=== PATIENT | male | born 1985 | race African-American/Black ===

== ENCOUNTER 2016-10-06 01:20 | Inpatient (IN) | payer OTHER ==
[~2016-10-06] VITALS: Ht 175.3 cm; Wt 86.7 kg
[~2016-10-06 01:20] MED LIST: CARB200T6 PO; GABA-531 PO; PHENY100 PO
[2016-10-06] MEDS ORDERED: LIDOCAINE HCL BUFFERED 1% W/EPI 1:100,000 20 ML VIAL INJ ONE (01:30)
[2016-10-06] MEDS ORDERED: SODIUM CHLORIDE 0.9% 250 ML IRRIG SOLUTION BOTTLE IRRIG ONE (01:30)
[2016-10-06] MEDS ORDERED: PERTUSS(ACELL),DIPH,TET VAC/PF 0.5 ML VIAL IM ONE (01:30)
[2016-10-06] MEDS ORDERED: LORazepam 2 MG TABLET PO ONE (01:30)
[2016-10-06] MEDS ORDERED: LORazepam 2 MG/ML VIAL ONE (01:41)
[2016-10-06 02:54] LABS: BASOPHILS # (AUTO) 0.01 K/uL (0.00-0.20); BASOPHILS % (AUTO) 0.1 % (0.0-2.0); EOSINOPHILS # (AUTO) 0.03 K/uL (0.00-0.70); EOSINOPHILS % (AUTO) 0.35 % (1.0-6.0); HEMATOCRIT 45.7 % (41-53); HEMOGLOBIN 14.7 g/dL (13.5-17.5); LYMPHOCYTES # (AUTO) 0.6 K/uL (1.0-4.8); LYMPHOCYTES % (AUTO) 7.2 % (22.0-44.0); MEAN CORPUSCULAR HEMOGLOBIN 26.6 pg (26.0-34.0); MEAN CORPUSCULAR HGB CONC 32.2 G/dL (31.0-37.0); MEAN CORPUSCULAR VOLUME 82 fL (80-100); MONOCYTES # (AUTO) 0.5 K/uL (0.1-1.0); MONOCYTES % (AUTO) 6.1 % (2.0-9.0); NEUTROPHILS # (AUTO) 7.1 K/uL (1.8-7.7); PLATELET COUNT (AUTO) 193 K/uL (150-450); RED BLOOD CELL COUNT(AUTO) 5.54 MIL/uL (4.50-5.90); RED CELL DISTRIBUTION WIDTH 14.6 % (11.5-14.5); WHITE BLOOD COUNT (AUTO) 8.2 K/uL (4.5-11.0)
[2016-10-06 02:58] LABS: NEUTROPHILS % (AUTO) 86.2 % (40.0-70.0)
[2016-10-06 03:04] LABS: ANION GAP 9 mmol/L (8-16); CARBON DIOXIDE 23 mmol/L (22-29); CHLORIDE 102 mmol/L (98-107); CREATININE 1.54 mg/dL (0.60-1.30); GLOMERULAR FILTR. RATE CALC > 60 mL/min (>60); POTASSIUM 4.3 mmol/L (3.5-5.1); SODIUM SERUM 134 mmol/L (136-145); UREA NITROGEN, BLOOD 11 mg/dL (7-18)
[2016-10-06 03:10] LABS: ALANINE AMINOTRANSFERASE 55 U/L (12-78); ALBUMIN 3.8 g/dL (3.4-5.0); ASPARTATE AMINOTRANSFERASE 36 U/L (15-37); BILIRUBIN,TOTAL 0.2 mg/dL (0.1-1.0); TOTAL PROTEIN, SERUM 7.7 g/dL (6.4-8.2)
[2016-10-06] MEDS ORDERED: LORazepam 2 MG/ML VIAL IVP ONE (03:15)
[2016-10-06 03:23] LABS: VALPROIC ACID < 3 mcg/mL (50-100)
[2016-10-06] MEDS ORDERED: PHENYTOIN SODIUM 1,000 MG in SODIUM CHLORIDE 0.9% 150 ML IV ONE (04:00)
[2016-10-06] MEDS ORDERED: VALPROATE SODIUM 1,000 MG in DEXTROSE 5%-WATER 100 ML IV ONE (04:00)
[2016-10-06] MEDS ORDERED: ONDANSETRON HCL 4 MG/2 ML VIAL IVP PRN ×2 (07:45→09:00)
[2016-10-06] MEDS ORDERED: ACETAMINOPHEN 325 MG TABLET PO PRN ×2 (07:45→09:00)
[2016-10-06] MEDS ORDERED: MAGNESIUM HYDROXIDE SUSPENSION 30 ML UDCUP PO PRN (09:00)
[2016-10-06] MEDS ORDERED: OxyCODONE HCL/ACETAMINOPHEN 5-325 MG TABLET PO PRN (09:00)
[2016-10-06] MEDS ORDERED: LORazepam 2 MG/ML VIAL IVP PRN (09:00)
[2016-10-06] MEDS: PANTOPRAZOLE SODIUM 40 MG DR TABLET PO SCH (09:19)
[2016-10-06] MEDS: DOCUSATE SODIUM 100 MG CAPSULE PO SCH ×2 (09:19→20:29)
[2016-10-06 09:55] VITALS: BP 119/57
[2016-10-06 11:34] VITALS: BP 110/62
[2016-10-06 15:23] VITALS: BP 97/50
[2016-10-06 19:49] VITALS: BP 104/58
[2016-10-07 00:31] VITALS: BP 119/54
[2016-10-07 04:02] VITALS: BP 114/53
[2016-10-07 07:35] VITALS: BP 120/61
[2016-10-07] MEDS: DOCUSATE SODIUM 100 MG CAPSULE PO SCH (08:26)
[2016-10-07] MEDS: PANTOPRAZOLE SODIUM 40 MG DR TABLET PO SCH (08:26)
[2016-10-07 11:37] VITALS: BP 117/57
== END 2016-10-07 14:45 | disposition home or self-care (01) | DRG 53 ==
LOC: EMS 01:22 → 5N 08:02
PROVIDERS: ADMIT Internal Medicine; ATTEND Internal Medicine
PROC: 0HQ1XZZ Repair Face Skin, External Approach (ICD-10-PCS; principal; 2016-10-06)
DX: G40.909 Epilepsy, unspecified, not intractable, without status epilepticus (principal); S01.111A Laceration without foreign body of right eyelid and periocular area, initial encounter; F17.210 Nicotine dependence, cigarettes, uncomplicated; S01.512A Laceration without foreign body of oral cavity, initial encounter; F12.90 Cannabis use, unspecified, uncomplicated; F14.90 Cocaine use, unspecified, uncomplicated; S80.212A Abrasion, left knee, initial encounter; F19.10 Other psychoactive substance abuse, uncomplicated; Z91.14 Patient's other noncompliance with medication regimen; Z79.899 Other long term (current) drug therapy; Z82.5 Family history of asthma and other chronic lower respiratory diseases; Z82.49 Family history of ischemic heart disease and other diseases of the circulatory system; Z82.0 Family history of epilepsy and other diseases of the nervous system; X58.XXXA Exposure to other specified factors, initial encounter; Y93.89 Activity, other specified; Y92.89 Other specified places as the place of occurrence of the external cause; Y99.8 Other external cause status
CPT/HCPCS: 80307; 90715; G0480; G0482; J1165; J2060; J3490; J7050; J7060

== ENCOUNTER 2016-11-23 16:42 | Emergency (ER) | payer OTHER ==
[~2016-11-23] VITALS: Ht 175.3 cm; Wt 95.5 kg
[~2016-11-23 16:42] MED LIST changes: -GABA-531 PO
[2016-11-23] MEDS ORDERED: LEVE250T55 PO (16:47)
[2016-11-23 18:28] VITALS: BP 137/82
== END 2016-11-23 19:03 | disposition home or self-care (01) ==
LOC: EMS 16:45
DX: Z76.0 Encounter for issue of repeat prescription (principal); F17.210 Nicotine dependence, cigarettes, uncomplicated; F12.90 Cannabis use, unspecified, uncomplicated; F14.90 Cocaine use, unspecified, uncomplicated
CPT/HCPCS: 36415; 80156; 80185; 99284; G0482

== ENCOUNTER 2017-03-26 02:24 | Emergency (ER) | payer OTHER ==
[~2017-03-26] VITALS: Ht 182.9 cm; Wt 86.4 kg
[~2017-03-26 02:24] MED LIST changes: +LEVE250T55 PO
[2017-03-26] MEDS ORDERED: SODIUM CHLORIDE 0.9% 1,000 ML IV ONE (02:45)
[2017-03-26 02:51] LABS: BASOPHILS # (AUTO) 0.03 K/uL (0.00-0.20); BASOPHILS % (AUTO) 0.7 % (0.0-2.0); HEMATOCRIT 41.3 % (41-53); HEMOGLOBIN 13.3 g/dL (13.5-17.5); LYMPHOCYTES # (AUTO) 1.3 K/uL (1.0-4.8); LYMPHOCYTES % (AUTO) 25.8 % (22.0-44.0); MEAN CORPUSCULAR HEMOGLOBIN 26.6 pg (26.0-34.0); MEAN CORPUSCULAR HGB CONC 32.3 G/dL (31.0-37.0); MEAN CORPUSCULAR VOLUME 82 fL (80-100); MONOCYTES # (AUTO) 0.4 K/uL (0.1-1.0); MONOCYTES % (AUTO) 8.7 % (2.0-9.0); NEUTROPHILS # (AUTO) 3.1 K/uL (1.8-7.7); NEUTROPHILS % (AUTO) 62.7 % (40.0-70.0); PLATELET COUNT (AUTO) 150 K/uL (150-450); RED BLOOD CELL COUNT(AUTO) 5.01 MIL/uL (4.50-5.90); RED CELL DISTRIBUTION WIDTH 15.2 % (11.5-14.5)
[2017-03-26 02:59] LABS: ANION GAP 11 mmol/L (8-16); CARBON DIOXIDE 25 mmol/L (22-29); CHLORIDE 105 mmol/L (98-107); CREATININE 1.31 mg/dL (0.60-1.30); GLOMERULAR FILTR. RATE CALC > 60 mL/min (>60); POTASSIUM 3.7 mmol/L (3.5-5.1); SODIUM SERUM 141 mmol/L (136-145); UREA NITROGEN, BLOOD 12 mg/dL (7-18)
[2017-03-26 03:04] LABS: ALANINE AMINOTRANSFERASE 27 U/L (12-78); ALBUMIN 3.7 g/dL (3.4-5.0); ASPARTATE AMINOTRANSFERASE 21 U/L (15-37); BILIRUBIN,TOTAL 0.3 mg/dL (0.1-1.0); TOTAL PROTEIN, SERUM 6.7 g/dL (6.4-8.2)
[2017-03-26] MEDS ORDERED: LevETIRAcetam 250 MG TABLET PO ONE (03:45)
[2017-03-26 04:10] VITALS: BP 136/88
== END 2017-03-26 04:17 | disposition home or self-care (01) ==
LOC: EMS 02:25
DX: G40.909 Epilepsy, unspecified, not intractable, without status epilepticus (principal); F12.90 Cannabis use, unspecified, uncomplicated; F14.90 Cocaine use, unspecified, uncomplicated; F17.210 Nicotine dependence, cigarettes, uncomplicated
CPT/HCPCS: 36415; 80053; 80185; 80307; 82948; 85025; 93005; 96360; 96361; 99285; G0480; J7030

== ENCOUNTER 2017-04-21 21:43 | Emergency (ER) | payer OTHER ==
[~2017-04-21] VITALS: Ht 175.3 cm; Wt 90.5 kg
[2017-04-21] MEDS ORDERED: DIVA125T PO (21:51)
[2017-04-22 01:23] LABS: BASOPHILS % (AUTO) 0.8 % (0.0-2.0); EOSINOPHILS % (AUTO) 2.9 % (1.0-6.0); HEMOGLOBIN 14.3 g/dL (13.5-17.5); LYMPHOCYTES # (AUTO) 2.1 K/uL (1.0-4.8); LYMPHOCYTES % (AUTO) 34.5 % (22.0-44.0); MEAN CORPUSCULAR HEMOGLOBIN 26.8 pg (26.0-34.0); MEAN CORPUSCULAR HGB CONC 32.5 G/dL (31.0-37.0); MEAN CORPUSCULAR VOLUME 82 fL (80-100); MONOCYTES # (AUTO) 0.4 K/uL (0.1-1.0); MONOCYTES % (AUTO) 7.3 % (2.0-9.0); NEUTROPHILS # (AUTO) 3.3 K/uL (1.8-7.7); NEUTROPHILS % (AUTO) 54.5 % (40.0-70.0); PLATELET COUNT (AUTO) 171 K/uL (150-450); RED BLOOD CELL COUNT(AUTO) 5.34 MIL/uL (4.50-5.90); RED CELL DISTRIBUTION WIDTH 14.3 % (11.5-14.5)
[2017-04-22 01:36] LABS: ALANINE AMINOTRANSFERASE 36 U/L (12-78); ALBUMIN 4.1 g/dL (3.4-5.0); ANION GAP 9 mmol/L (8-16); ASPARTATE AMINOTRANSFERASE 33 U/L (15-37); BILIRUBIN,TOTAL 0.3 mg/dL (0.1-1.0); CARBON DIOXIDE 26 mmol/L (22-29); CHLORIDE 102 mmol/L (98-107); CREATININE 1.34 mg/dL (0.60-1.30); GLOMERULAR FILTR. RATE CALC > 60 mL/min (>60); SODIUM SERUM 137 mmol/L (136-145); TOTAL PROTEIN, SERUM 8.3 g/dL (6.4-8.2); UREA NITROGEN, BLOOD 13 mg/dL (7-18)
[2017-04-22 01:38] LABS: POTASSIUM 5.4 mmol/L (3.5-5.1)
[2017-04-22 02:51] VITALS: BP 128/88
[2017-04-22] MEDS ORDERED: PHENYTOIN SODIUM 100 MG ER CAPSULE PO ONE (03:00)
[2017-04-22] MEDS ORDERED: DIVALPROEX SODIUM 125 MG DR TABLET PO ONE (03:00)
[2017-04-22] MEDS ORDERED: LevETIRAcetam 250 MG TABLET PO ONE (03:00)
[2017-04-22] MEDS ORDERED: CarBAMazepine 200 MG TABLET PO ONE (03:00)
[2017-04-22] MEDS ORDERED: IBUPROFEN 600 MG TABLET PO ONE (03:15)
[2017-04-22 03:18] LABS: GLUCOSE,POINT OF CARE 106 MG/DL (70-110)
== END 2017-04-22 03:16 | disposition home or self-care (01) ==
LOC: EMS 21:44
DX: G40.909 Epilepsy, unspecified, not intractable, without status epilepticus (principal); M79.641 Pain in right hand; F12.90 Cannabis use, unspecified, uncomplicated; F14.90 Cocaine use, unspecified, uncomplicated; F17.210 Nicotine dependence, cigarettes, uncomplicated
CPT/HCPCS: 70450; 82948; 82962; 99285

== ENCOUNTER 2018-01-12 08:17 | Emergency (ER) | payer OTHER ==
[~2018-01-12] VITALS: Ht 175.3 cm; Wt 90.9 kg
[~2018-01-12 08:17] MED LIST changes: +DIVA125T32 PO; +DIVA250T45 PO; +PHEN100C23 PO
[2018-01-12] MEDS ORDERED: KETOROLAC TROMETHAMINE 30 MG/ML VIAL IVP ONE (08:45)
[2018-01-12] MEDS ORDERED: LevETIRAcetam 1,000 MG in DEXTROSE 5%-WATER 100 ML IV ONE (08:45)
[2018-01-12 09:44] LABS: CARBAMAZEPINE (TEGRETOL) < 0.5 mcg/mL (4.0-12.0); PHENYTOIN (DILANTIN) 0.6 mcg/mL (10.0-20.0); VALPROIC ACID 10 mcg/mL (50-100)
[2018-01-12] MEDS ORDERED: PHENYTOIN SODIUM 1,000 MG in SODIUM CHLORIDE 0.9% 150 ML IV ONE (10:00)
[2018-01-12] MEDS ORDERED: DIVALPROEX SODIUM 125 MG DR TABLET PO ONE (10:00)
[2018-01-12] MEDS ORDERED: CarBAMazepine 200 MG TABLET PO ONE (10:00)
[2018-01-12 11:36] VITALS: BP 108/77
== END 2018-01-12 11:37 | disposition home or self-care (01) ==
LOC: EMS 08:19
DX: G40.909 Epilepsy, unspecified, not intractable, without status epilepticus (principal); R51 Headache
CPT/HCPCS: 36415; 80156; 80164; 80185; 96365; 96366; 96367; 96375; 99285; J0712; J1165; J1885; J7050; J7060

== ENCOUNTER 2018-04-20 10:58 | Emergency (ER) | payer OTHER ==
[~2018-04-20] VITALS: Ht 175.3 cm; Wt 90.9 kg
[~2018-04-20 10:58] MED LIST changes: -DIVA250T45 PO; -PHENY100 PO
[2018-04-20 11:04] VITALS: BP 133/79
== END 2018-04-20 14:05 | disposition left against medical advice (07) ==
LOC: EMS 10:59
DX: R56.9 Unspecified convulsions (principal); Z53.21 Procedure and treatment not carried out due to patient leaving prior to being seen by health care provider

== ENCOUNTER 2018-07-13 11:46 | Emergency (ER) | payer OTHER ==
[~2018-07-13] VITALS: Ht 175.3 cm; Wt 86.4 kg
[2018-07-13] MEDS ORDERED: DIVALPROEX SODIUM 125 MG DR TABLET PO ONE (12:45)
[2018-07-13] MEDS ORDERED: LevETIRAcetam 250 MG TABLET PO ONE (12:45)
[2018-07-13 13:01] LABS: PHENYTOIN (DILANTIN) 5.8 mcg/mL (10.0-20.0)
[2018-07-13 13:02] LABS: VALPROIC ACID < 3 mcg/mL (50-100)
[2018-07-13] MEDS ORDERED: PHENYTOIN SODIUM 100 MG ER CAPSULE PO ONE (13:45)
[2018-07-13 14:01] VITALS: BP 114/80
== END 2018-07-13 14:01 | disposition home or self-care (01) ==
LOC: EMS 11:48
DX: G40.909 Epilepsy, unspecified, not intractable, without status epilepticus (principal)

== ENCOUNTER 2018-10-12 01:12 | Emergency (ER) | payer OTHER ==
[~2018-10-12] VITALS: Ht 175.3 cm; Wt 90.9 kg
[2018-10-12 03:02] LABS: PHENYTOIN (DILANTIN) < 0.5 mcg/mL (10.0-20.0); VALPROIC ACID < 3 mcg/mL (50-100)
[2018-10-12] MEDS ORDERED: LORazepam 2 MG/ML VIAL IVP ONE (04:15)
[2018-10-12] MEDS ORDERED: PHENYTOIN SODIUM 100 MG ER CAPSULE PO ONE (04:15)
[2018-10-12] MEDS ORDERED: LevETIRAcetam 1,000 MG in DEXTROSE 5%-WATER 100 ML IV ONE (04:15)
[2018-10-12] MEDS ORDERED: DIVALPROEX SODIUM 500 MG ER TABLET PO ONE (04:15)
[2018-10-12 05:15] VITALS: BP 119/76
[2018-10-12 05:17] LABS: BASOPHILS % (AUTO) 0.6 % (0.0-2.0); EOSINOPHILS % (AUTO) 8.4 % (1.0-6.0); HEMATOCRIT 42.8 % (41-53); HEMOGLOBIN 13.7 g/dL (13.5-17.5); LYMPHOCYTES # (AUTO) 1.8 K/uL (1.0-4.8); LYMPHOCYTES % (AUTO) 34.3 % (22.0-44.0); MEAN CORPUSCULAR HEMOGLOBIN 26.6 pg (26.0-34.0); MEAN CORPUSCULAR HGB CONC 31.9 G/dL (31.0-37.0); MEAN CORPUSCULAR VOLUME 83 fL (80-100); MONOCYTES # (AUTO) 0.6 K/uL (0.1-1.0); MONOCYTES % (AUTO) 11.6 % (2.0-9.0); NEUTROPHILS # (AUTO) 2.4 K/uL (1.8-7.7); NEUTROPHILS % (AUTO) 45.1 % (40.0-70.0); PLATELET COUNT (AUTO) 176 K/uL (150-450); RED BLOOD CELL COUNT(AUTO) 5.15 MIL/uL (4.50-5.90); RED CELL DISTRIBUTION WIDTH 13.7 % (11.5-14.5)
[2018-10-12 05:26] LABS: ANION GAP 8 mmol/L (8-16); CARBON DIOXIDE 24 mmol/L (22-29); CHLORIDE 106 mmol/L (98-107); CREATININE 1.43 mg/dL (0.60-1.30); GLOMERULAR FILTR. RATE CALC > 60 mL/min (>60); GLUCOSE,RANDOM 90 mg/dL (70-110); POTASSIUM 4.2 mmol/L (3.5-5.1); SODIUM SERUM 138 mmol/L (136-145); UREA NITROGEN, BLOOD 15 mg/dL (7-18)
[2018-10-12 05:31] LABS: ALANINE AMINOTRANSFERASE 24 U/L (12-78); ALBUMIN 3.5 g/dL (3.4-5.0); ALKALINE PHOSPHATASE 74 U/L (46-116); ASPARTATE AMINOTRANSFERASE 15 U/L (15-37); BILIRUBIN,TOTAL 0.2 mg/dL (0.1-1.0); TOTAL PROTEIN, SERUM 6.7 g/dL (6.4-8.2)
== END 2018-10-12 06:11 | disposition home or self-care (01) ==
LOC: EMS 01:15
DX: G40.89 Other seizures (principal); F17.210 Nicotine dependence, cigarettes, uncomplicated; Z79.899 Other long term (current) drug therapy
CPT/HCPCS: 36415; 80053; 80164; 80185; 85025; 96365; 96375; 99283; 99406; G0482; J0712; J2060; J7060

== ENCOUNTER 2018-11-29 09:57 | Emergency (ER) | payer OTHER ==
[~2018-11-29] VITALS: Ht 175.3 cm; Wt 95.5 kg
[~2018-11-29 09:57] MED LIST changes: -CARB200T6 PO
[2018-11-29] MEDS ORDERED: PHENYTOIN SODIUM 100 MG ER CAPSULE PO ONE (10:30)
[2018-11-29] MEDS ORDERED: LevETIRAcetam 250 MG TABLET PO ONE (10:30)
[2018-11-29] MEDS ORDERED: IBUPROFEN 600 MG TABLET PO ONE (10:30)
[2018-11-29] MEDS ORDERED: CarBAMazepine 200 MG TABLET PO ONE (10:30)
[2018-11-29 10:59] LABS: PHENYTOIN (DILANTIN) < 0.5 mcg/mL (10.0-20.0)
[2018-11-29 12:39] VITALS: BP 109/79
== END 2018-11-29 12:48 | disposition home or self-care (01) ==
LOC: EMS 09:58
DX: G40.509 Epileptic seizures related to external causes, not intractable, without status epilepticus (principal); F17.210 Nicotine dependence, cigarettes, uncomplicated

== ENCOUNTER 2018-12-06 22:42 | Inpatient (IN) | payer OTHER ==
[~2018-12-06] VITALS: Ht 175.3 cm; Wt 90.4 kg
[2018-12-06] MEDS ORDERED: LORazepam 2 MG/ML VIAL ONE (23:19)
[2018-12-06 23:26] LABS: PHENYTOIN (DILANTIN) 1.2 mcg/mL (10.0-20.0)
[2018-12-06 23:30] LABS: GLUCOSE,POINT OF CARE 130 MG/DL (70-110)
[2018-12-06] MEDS ORDERED: LORazepam 2 MG/ML VIAL IVP ONE (23:30)
[2018-12-06] MEDS ORDERED: LevETIRAcetam 1,000 MG in DEXTROSE 5%-WATER 100 ML IV ONE (23:30)
[2018-12-06 23:38] LABS: BASOPHILS % (AUTO) 0.4 % (0.0-2.0); EOSINOPHILS % (AUTO) 0.5 % (1.0-6.0); HEMATOCRIT 44.7 % (41-53); HEMOGLOBIN 14.2 g/dL (13.5-17.5); MEAN CORPUSCULAR HEMOGLOBIN 26.4 pg (26.0-34.0); MEAN CORPUSCULAR HGB CONC 31.8 G/dL (31.0-37.0); MEAN CORPUSCULAR VOLUME 83 fL (80-100); MONOCYTES % (AUTO) 8.8 % (2.0-9.0); NEUTROPHILS # (AUTO) 7.9 K/uL (1.8-7.7); NEUTROPHILS % (AUTO) 72.3 % (40.0-70.0); PLATELET COUNT (AUTO) 228 K/uL (150-450); RED BLOOD CELL COUNT(AUTO) 5.38 MIL/uL (4.50-5.90); RED CELL DISTRIBUTION WIDTH 13.7 % (11.5-14.5)
[2018-12-06 23:54] LABS: ANION GAP 11 mmol/L (8-16); CALCIUM, TOTAL 9.5 mg/dL (8.8-10.5); CARBON DIOXIDE 22 mmol/L (22-29); CHLORIDE 106 mmol/L (98-107); CREATININE 1.41 mg/dL (0.60-1.30); GLOMERULAR FILTR. RATE CALC > 60 mL/min (>60); GLUCOSE,RANDOM 133 mg/dL (70-110); POTASSIUM 3.1 mmol/L (3.5-5.1); SODIUM SERUM 139 mmol/L (136-145); UREA NITROGEN, BLOOD 7 mg/dL (7-18)
[2018-12-07] LABS: ALANINE AMINOTRANSFERASE 24 U/L (12-78); ALBUMIN 3.9 g/dL (3.4-5.0); ALKALINE PHOSPHATASE 71 U/L (46-116); ASPARTATE AMINOTRANSFERASE 15 U/L (15-37); BILIRUBIN,TOTAL 0.3 mg/dL (0.1-1.0); TOTAL PROTEIN, SERUM 7.2 g/dL (6.4-8.2)
[2018-12-07] MEDS ORDERED: PHENYTOIN SODIUM 100 MG ER CAPSULE PO ONE (00:30)
[2018-12-07] MEDS ORDERED: DIVALPROEX SODIUM 500 MG ER TABLET PO ONE (02:00)
[2018-12-07] MEDS ORDERED: POTASSIUM CHLORIDE 10% 40 MEQ/30 ML LIQUID UDCUP PO ONE (02:00)
[2018-12-07] MEDS ORDERED: MORPHINE SULFATE 2 MG/ML SYRINGE IVP ONE (02:00)
[2018-12-07] MEDS ORDERED: ONDANSETRON HCL 4 MG/2 ML VIAL IVP ONE (02:00)
[2018-12-07] MEDS ORDERED: ACETAMINOPHEN 325 MG TABLET PO PRN (03:30)
[2018-12-07] MEDS ORDERED: ONDANSETRON HCL 4 MG/2 ML VIAL IVP PRN ×2 (03:30→07:15)
[2018-12-07] MEDS ORDERED: 0.9% SODIUM CHLORIDE 10 ML SYRINGE IVP PRN ×2 (03:30→07:15)
[2018-12-07] MEDS ORDERED: SODIUM CHLORIDE 0.9% 1,000 ML IV SCH (07:15)
[2018-12-07] MEDS ORDERED: LORazepam 2 MG/ML VIAL IVP PRN (07:15)
[2018-12-07] MEDS ORDERED: ZOLPIDEM TARTRATE 5 MG TABLET PO PRN (07:15)
[2018-12-07 08:28] LABS: ANION GAP 8 mmol/L (8-16); CALCIUM, TOTAL 9.4 mg/dL (8.8-10.5); CARBON DIOXIDE 25 mmol/L (22-29); CHLORIDE 106 mmol/L (98-107); CREATINE KINASE, TOTAL ONLY 109 U/L (39-308); CREATININE 1.35 mg/dL (0.60-1.30); GLOMERULAR FILTR. RATE CALC > 60 mL/min (>60); GLUCOSE,RANDOM 101 mg/dL (70-110); SODIUM SERUM 139 mmol/L (136-145); UREA NITROGEN, BLOOD 6 mg/dL (7-18)
[2018-12-07] MEDS ORDERED: SODIUM BICARBONATE 50 MEQ in SODIUM CHLORIDE 0.9% 1,000 ML IV SCH (08:45)
[2018-12-07 08:49] VITALS: BP 124/101
[2018-12-07] MEDS ORDERED: DIVALPROEX SODIUM 125 MG DR TABLET PO SCH (09:00)
[2018-12-07] MEDS ORDERED: PANTOPRAZOLE SODIUM 40 MG DR TABLET PO SCH (09:00)
[2018-12-07] MEDS ORDERED: LevETIRAcetam 500 MG TABLET PO ONE (09:00)
[2018-12-07] MEDS ORDERED: PHENYTOIN SODIUM 100 MG ER CAPSULE PO SCH (09:00)
[2018-12-07] MEDS ORDERED: LevETIRAcetam 250 MG TABLET PO SCH (09:00)
[2018-12-07 11:29] VITALS: BP 112/68
[2018-12-07 15:53] VITALS: BP 117/82
[2018-12-07] MEDS ORDERED: PHENYTOIN 100 MG/4 ML SUSPENSION UDCUP PO ONE (20:00)
== END 2018-12-07 16:00 | disposition left against medical advice (07) | DRG 53 ==
LOC: EMS 22:43 → 5S 12-07 05:03
PROVIDERS: ADMIT Internal Medicine; ATTEND Internal Medicine
DX: G40.401 Other generalized epilepsy and epileptic syndromes, not intractable, with status epilepticus (principal); M62.82 Rhabdomyolysis; Z59.0 Homelessness; E87.6 Hypokalemia; S00.532A Contusion of oral cavity, initial encounter; Z79.899 Other long term (current) drug therapy; Z87.891 Personal history of nicotine dependence; Z91.19 Patient's noncompliance with other medical treatment and regimen; Z53.21 Procedure and treatment not carried out due to patient leaving prior to being seen by health care provider
CPT/HCPCS: 70450; 93005; 99291; G0480; J0712; J2060; J2270; J2405; J3490; J7030; J7060

== ENCOUNTER 2018-12-25 15:49 | Emergency (ER) | payer OTHER ==
[~2018-12-25] VITALS: Ht 175.3 cm; Wt 90.9 kg
[2018-12-25 16:29] LABS: BASOPHILS % (AUTO) 1.2 % (0.0-2.0); EOSINOPHILS % (AUTO) 1.5 % (1.0-6.0); HEMOGLOBIN 14.8 g/dL (13.5-17.5); LYMPHOCYTES # (AUTO) 1.3 K/uL (1.0-4.8); LYMPHOCYTES % (AUTO) 17.7 % (22.0-44.0); MEAN CORPUSCULAR HEMOGLOBIN 26.3 pg (26.0-34.0); MEAN CORPUSCULAR HGB CONC 32.1 G/dL (31.0-37.0); MEAN CORPUSCULAR VOLUME 82 fL (80-100); MONOCYTES % (AUTO) 13.6 % (2.0-9.0); NEUTROPHILS # (AUTO) 4.7 K/uL (1.8-7.7); PLATELET COUNT (AUTO) 183 K/uL (150-450); RED BLOOD CELL COUNT(AUTO) 5.62 MIL/uL (4.50-5.90); RED CELL DISTRIBUTION WIDTH 13.8 % (11.5-14.5)
[2018-12-25 16:49] LABS: ANION GAP 9 mmol/L (8-16); CALCIUM, TOTAL 9.8 mg/dL (8.8-10.5); CARBON DIOXIDE 26 mmol/L (22-29); CHLORIDE 101 mmol/L (98-107); CREATININE 1.52 mg/dL (0.60-1.30); GLOMERULAR FILTR. RATE CALC > 60 mL/min (>60); GLUCOSE,RANDOM 76 mg/dL (70-110); POTASSIUM 3.7 mmol/L (3.5-5.1); SODIUM SERUM 136 mmol/L (136-145); UREA NITROGEN, BLOOD 14 mg/dL (7-18)
[2018-12-25 16:55] LABS: ALANINE AMINOTRANSFERASE 24 U/L (12-78); ALBUMIN 4.8 g/dL (3.4-5.0); ALKALINE PHOSPHATASE 82 U/L (46-116); ASPARTATE AMINOTRANSFERASE 16 U/L (15-37); BILIRUBIN,TOTAL 0.6 mg/dL (0.1-1.0); TOTAL PROTEIN, SERUM 8.4 g/dL (6.4-8.2)
[2018-12-25 17:19] LABS: PHENYTOIN (DILANTIN) < 0.5 mcg/mL (10.0-20.0); VALPROIC ACID < 3 mcg/mL (50-100)
[2018-12-25] MEDS ORDERED: LevETIRAcetam 1,000 MG in DEXTROSE 5%-WATER 100 ML IV ONE (17:45)
[2018-12-25] MEDS ORDERED: KETOROLAC TROMETHAMINE 30 MG/ML VIAL IVP ONE (21:15)
[2018-12-25] MEDS ORDERED: SODIUM CHLORIDE 0.9% 1,000 ML IV ONE (21:15)
[2018-12-25 22:29] LABS: APPEARANCE,URINE CLEAR (CLEAR); BILIRUBIN,URINE NEGATIVE (NEGATIVE); GLUCOSE, URINE (UA) NEGATIVE (NEGATIVE); KETONES,URINE NEGATIVE (NEGATIVE); LEUKOCYTE ESTERASE ,URINE NEGATIVE (NEGATIVE); NITRATE,URINE NEGATIVE (NEGATIVE); OCCULT BLOOD,URINE NEGATIVE (NEGATIVE); PROTEIN,URINE NEGATIVE (NEGATIVE); UROBILINOGEN,URINE 0.2 mg/dL (<=1.0)
[2018-12-25 23:00] VITALS: BP 115/64
== END 2018-12-25 23:35 | disposition home or self-care (01) ==
LOC: EMS 15:53
DX: G40.909 Epilepsy, unspecified, not intractable, without status epilepticus (principal); F17.210 Nicotine dependence, cigarettes, uncomplicated; Z79.899 Other long term (current) drug therapy
CPT/HCPCS: 36415; 80053; 80164; 80185; 81003; 85025; 96365; 96375; 99285; J0712; J1885; J7030; J7060

== ENCOUNTER 2019-10-19 09:41 | Emergency (ER) | payer MEDICAID, OTHER ==
[~2019-10-19] VITALS: Ht 177.8 cm; Wt 84.1 kg
[2019-10-19 10:29] LABS: GLUCOSE,POINT OF CARE 113 MG/DL (70-110)
[2019-10-19] MEDS ORDERED: PHENYTOIN SODIUM 750 MG in SODIUM CHLORIDE 0.9% 100 ML IV ONE (10:30)
[2019-10-19] MEDS ORDERED: PHENYTOIN SODIUM 100 MG ER CAPSULE PO ONE (11:30)
[2019-10-19 13:01] VITALS: BP 111/63
== END 2019-10-19 13:57 | disposition home or self-care (01) ==
LOC: EMS 09:44
DX: G40.909 Epilepsy, unspecified, not intractable, without status epilepticus (principal); F17.210 Nicotine dependence, cigarettes, uncomplicated
CPT/HCPCS: J1165; J7050

== ENCOUNTER 2020-04-05 11:59 | Emergency (ER) | payer MEDICAID ==
[~2020-04-05] VITALS: Ht 170.2 cm; Wt 90.9 kg
[2020-04-05] MEDS ORDERED: CARB100 PO (12:19)
[2020-04-05] MEDS ORDERED: LEVE500T53 PO (13:27)
[2020-04-05] MEDS ORDERED: CARB200T6 PO (13:27)
[2020-04-05] MEDS: LevETIRAcetam 750 MG in DEXTROSE 5%-WATER 100 ML IV ONE (14:35)
[2020-04-05 14:37] LABS: BASOPHILS % (AUTO) 0.7 % (0.0-2.0); EOSINOPHILS % (AUTO) 0.2 % (1.0-6.0); HEMATOCRIT 46.4 % (41-53); HEMOGLOBIN 15.2 g/dL (13.5-17.5); LYMPHOCYTES # (AUTO) 0.8 K/uL (1.0-4.8); LYMPHOCYTES % (AUTO) 7.7 % (22.0-44.0); MEAN CORPUSCULAR HEMOGLOBIN 27.2 pg (26.0-34.0); MEAN CORPUSCULAR HGB CONC 32.8 G/dL (31.0-37.0); MEAN CORPUSCULAR VOLUME 83 fL (80-100); MONOCYTES # (AUTO) 0.7 K/uL (0.1-1.0); MONOCYTES % (AUTO) 6.4 % (2.0-9.0); NEUTROPHILS # (AUTO) 8.9 K/uL (1.8-7.7); PLATELET COUNT (AUTO) 185 K/uL (150-450); RED CELL DISTRIBUTION WIDTH 14.1 % (11.5-14.5)
[2020-04-05 14:53] LABS: ALANINE AMINOTRANSFERASE 31 U/L (12-78); ALBUMIN 3.5 g/dL (3.4-5.0); ALKALINE PHOSPHATASE 78 U/L (46-116); ANION GAP 3 mmol/L (8-16); ASPARTATE AMINOTRANSFERASE 33 U/L (15-37); BILIRUBIN,TOTAL 0.3 mg/dL (0.1-1.0); CALCIUM, TOTAL 8.8 mg/dL (8.8-10.5); CARBAMAZEPINE (TEGRETOL) 3.3 mcg/mL (4.0-12.0); CARBON DIOXIDE 25 mmol/L (22-29); CHLORIDE 104 mmol/L (98-107); CREATININE 1.23 mg/dL (0.60-1.30); GLOMERULAR FILTR. RATE CALC > 60 mL/min (>60); GLUCOSE,RANDOM 79 mg/dL (70-110); PHENYTOIN (DILANTIN) 3.6 mcg/mL (10.0-20.0); SODIUM SERUM 132 mmol/L (136-145); TOTAL PROTEIN, SERUM 7.7 g/dL (6.4-8.2); UREA NITROGEN, BLOOD 8 mg/dL (7-18)
[2020-04-05] MEDS ORDERED: HYDROCODONE/ACETAMINOPHEN 5-325 MG TABLET PO ONE (15:00)
[2020-04-05] MEDS ORDERED: PHENYTOIN SODIUM 100 MG ER CAPSULE PO ONE (15:30)
[2020-04-05] MEDS ORDERED: LevETIRAcetam 500 MG TABLET PO ONE (15:30)
[2020-04-05 16:24] VITALS: BP 127/54
== END 2020-04-05 17:32 | disposition home or self-care (01) ==
LOC: EMS 11:59
DX: G40.909 Epilepsy, unspecified, not intractable, without status epilepticus (principal); F17.210 Nicotine dependence, cigarettes, uncomplicated
CPT/HCPCS: 36415; 80053; 80156; 80185; 85025; 99285; J0712; J7060

== ENCOUNTER 2020-09-26 19:47 | Emergency (ER) | payer MEDICAID ==
[~2020-09-26] VITALS: Ht 175.3 cm; Wt 90.9 kg
[~2020-09-26 19:47] MED LIST changes: +CARB100 PO; +CARB200T6 PO; -DIVA125T32 PO; -LEVE250T55 PO; +LEVE500T53 PO; +PHENY100 PO
[2020-09-26] MEDS ORDERED: SODIUM CHLORIDE 0.9% 1,000 ML IV ONE (20:00)
[2020-09-26] MEDS ORDERED: LORazepam 1 MG TABLET PO ONE (20:15)
[2020-09-26 20:30] LABS: EOSINOPHILS % (AUTO) 1.3 % (1.0-6.0); HEMATOCRIT 45.4 % (41-53); HEMOGLOBIN 14.6 g/dL (13.5-17.5); LYMPHOCYTES # (AUTO) 1.7 K/uL (1.0-4.8); MEAN CORPUSCULAR HEMOGLOBIN 26.6 pg (26.0-34.0); MEAN CORPUSCULAR HGB CONC 32.1 G/dL (31.0-37.0); MEAN CORPUSCULAR VOLUME 83 fL (80-100); MONOCYTES # (AUTO) 0.7 K/uL (0.1-1.0); MONOCYTES % (AUTO) 9.9 % (2.0-9.0); NEUTROPHILS # (AUTO) 4.7 K/uL (1.8-7.7); NEUTROPHILS % (AUTO) 64.8 % (40.0-70.0); PLATELET COUNT (AUTO) 162 K/uL (150-450); RED BLOOD CELL COUNT(AUTO) 5.48 MIL/uL (4.50-5.90); RED CELL DISTRIBUTION WIDTH 14.2 % (11.5-14.5)
[2020-09-26 20:37] LABS: ANION GAP 11 mmol/L (8-16); CARBON DIOXIDE 26 mmol/L (22-29); CHLORIDE 99 mmol/L (98-107); CREATININE 1.44 mg/dL (0.60-1.30); GLUCOSE,RANDOM 76 mg/dL (70-110); POTASSIUM 3.8 mmol/L (3.5-5.1); SODIUM SERUM 136 mmol/L (136-145); UREA NITROGEN, BLOOD 9 mg/dL (7-18)
[2020-09-26 20:38] LABS: CALCIUM, TOTAL 8.9 mg/dL (8.8-10.5); GLOMERULAR FILTR. RATE CALC > 60 mL/min (>60)
[2020-09-26 20:43] LABS: ALANINE AMINOTRANSFERASE 57 U/L (12-78); ALBUMIN 4.3 g/dL (3.4-5.0); ALKALINE PHOSPHATASE 85 U/L (46-116); ASPARTATE AMINOTRANSFERASE 35 U/L (15-37); BILIRUBIN,TOTAL 0.3 mg/dL (0.1-1.0); PHENYTOIN (DILANTIN) 3.3 mcg/mL (10.0-20.0); TOTAL PROTEIN, SERUM 7.4 g/dL (6.4-8.2)
[2020-09-26] MEDS ORDERED: TraMADol HCL 50 MG TABLET PO ONE (21:00)
[2020-09-26] MEDS ORDERED: PHENYTOIN SODIUM 1,000 MG in SODIUM CHLORIDE 0.9% 150 ML IV ONE (21:00)
[2020-09-26 23:25] VITALS: BP 128/64
== END 2020-09-27 00:15 | disposition home or self-care (01) ==
LOC: EMS 19:49
DX: G40.909 Epilepsy, unspecified, not intractable, without status epilepticus (principal); F14.10 Cocaine abuse, uncomplicated; R89.2 Abnormal level of other drugs, medicaments and biological substances in specimens from other organs, systems and tissues; F17.210 Nicotine dependence, cigarettes, uncomplicated
CPT/HCPCS: 36415; 80053; 80156; 80185; 82962; 85025; 96361; 96365; 99285; G0480; J1165; J7030; J7050

== ENCOUNTER 2020-10-24 05:49 | Emergency (ER) | payer MEDICAID ==
[~2020-10-24] VITALS: Ht 175.3 cm; Wt 90.6 kg
[2020-10-24 07:47] VITALS: BP 126/74
== END 2020-10-24 08:16 | disposition home or self-care (01) ==
LOC: EMS 05:54
DX: S00.512A Abrasion of oral cavity, initial encounter (principal); G40.909 Epilepsy, unspecified, not intractable, without status epilepticus; F17.210 Nicotine dependence, cigarettes, uncomplicated; F14.90 Cocaine use, unspecified, uncomplicated; X58.XXXA Exposure to other specified factors, initial encounter; Y93.84 Activity, sleeping; Y92.89 Other specified places as the place of occurrence of the external cause; Y99.8 Other external cause status
CPT/HCPCS: 99283

== ENCOUNTER 2021-02-07 05:19 | Emergency (ER) | payer MEDICAID ==
[~2021-02-07] VITALS: Ht 177.8 cm; Wt 81.8 kg
[~2021-02-07 05:19] MED LIST changes: +LEVE500T20 PO; -LEVE500T53 PO
[2021-02-07 05:44] VITALS: BP 148/64
== END 2021-02-07 07:09 | disposition left against medical advice (07) ==
LOC: EMS 05:19
DX: G40.909 Epilepsy, unspecified, not intractable, without status epilepticus (principal); F17.210 Nicotine dependence, cigarettes, uncomplicated; F14.90 Cocaine use, unspecified, uncomplicated; Z79.899 Other long term (current) drug therapy
CPT/HCPCS: 93005; 99283

== ENCOUNTER 2021-05-01 16:19 | Emergency (ER) | payer MEDICAID ==
[~2021-05-01] VITALS: Ht 175.3 cm; Wt 93.2 kg
[2021-05-01 19:25] VITALS: BP 151/70
== END 2021-05-01 19:48 | disposition home or self-care (01) ==
LOC: EMS 16:21
DX: G40.909 Epilepsy, unspecified, not intractable, without status epilepticus (principal); Z76.0 Encounter for issue of repeat prescription; Z79.899 Other long term (current) drug therapy
CPT/HCPCS: 99281; Z7502

== ENCOUNTER 2021-05-17 08:57 | Emergency (ER) | payer MEDICAID ==
[~2021-05-17] VITALS: Ht 175.3 cm; Wt 90.9 kg
[~2021-05-17 08:57] MED LIST changes: -CARB100 PO; -PHENY100 PO
[2021-05-17 08:59] VITALS: BP 146/91
== END 2021-05-17 09:17 | disposition home or self-care (01) ==
LOC: EMS 09:00
DX: G40.909 Epilepsy, unspecified, not intractable, without status epilepticus (principal); Z76.0 Encounter for issue of repeat prescription; Z79.899 Other long term (current) drug therapy
CPT/HCPCS: 99281; Z7502

== ENCOUNTER 2021-06-14 07:13 | Emergency (ER) | payer MEDICAID ==
[~2021-06-14] VITALS: Ht 175.3 cm; Wt 90.9 kg
[2021-06-14 07:14] VITALS: BP 123/62
[2021-06-14] MEDS ORDERED: PHENYTOIN SODIUM 100 MG ER CAPSULE PO ONE (08:00)
[2021-06-14] MEDS ORDERED: LevETIRAcetam 500 MG TABLET PO ONE (08:00)
[2021-06-14] MEDS ORDERED: CarBAMazepine 200 MG ER TABLET PO ONE (08:00)
[2021-06-14] MEDS ORDERED: ACETAMINOPHEN 500 MG TABLET PO ONE (08:00)
[2021-06-14] MEDS ORDERED: LEVE250T4 PO (08:53)
[2021-06-14] MEDS ORDERED: CARB200T6 PO (08:53)
[2021-06-14] MEDS ORDERED: PHEN100C23 PO (08:53)
== END 2021-06-14 09:17 | disposition home or self-care (01) ==
LOC: EMS 07:16
DX: R56.9 Unspecified convulsions (principal); Z79.899 Other long term (current) drug therapy
CPT/HCPCS: 99284; Z7502; Z7610

== ENCOUNTER 2021-07-07 02:07 | Emergency (ER) | payer MEDICAID ==
[~2021-07-07] VITALS: Ht 180.3 cm; Wt 90.7 kg
[~2021-07-07 02:07] MED LIST changes: +LEVE250T4 PO; -LEVE500T20 PO
[2021-07-07] MEDS ORDERED: SODIUM CHLORIDE 0.9% 1,000 ML IV ONE (02:15)
[2021-07-07] MEDS ORDERED: LevETIRAcetam 1,000 MG in DEXTROSE 5%-WATER 100 ML IV ONE (02:15)
[2021-07-07 02:47] LABS: COVID AG,FIA SOURCE NASOPHARYNGEAL
[2021-07-07 03:01] LABS: BASOPHILS % (AUTO) 1.2 % (0.0-2.0); EOSINOPHILS % (AUTO) 0.8 % (1.0-6.0); HEMATOCRIT 42.7 % (41-53); HEMOGLOBIN 14.3 g/dL (13.5-17.5); LYMPHOCYTES # (AUTO) 1.8 K/uL (1.0-4.8); LYMPHOCYTES % (AUTO) 22.7 % (22.0-44.0); MEAN CORPUSCULAR HEMOGLOBIN 26.4 pg (26.0-34.0); MEAN CORPUSCULAR HGB CONC 33.4 G/dL (31.0-37.0); MEAN CORPUSCULAR VOLUME 79 fL (80-100); MONOCYTES # (AUTO) 0.7 K/uL (0.1-1.0); MONOCYTES % (AUTO) 8.5 % (2.0-9.0); NEUTROPHILS # (AUTO) 5.4 K/uL (1.8-7.7); NEUTROPHILS % (AUTO) 66.8 % (40.0-70.0); PLATELET COUNT (AUTO) 165 K/uL (150-450); RED BLOOD CELL COUNT(AUTO) 5.39 MIL/uL (4.50-5.90); RED CELL DISTRIBUTION WIDTH 14.4 % (11.5-14.5)
[2021-07-07 03:14] LABS: ANION GAP 12 mmol/L (8-16); CALCIUM, TOTAL 9.7 mg/dL (8.8-10.5); CARBON DIOXIDE 26 mmol/L (22-29); CHLORIDE 100 mmol/L (98-107); CREATININE 1.18 mg/dL (0.60-1.30); GLOMERULAR FILTR. RATE CALC > 60 mL/min (>60); GLUCOSE,RANDOM 73 mg/dL (70-110); POTASSIUM 4.3 mmol/L (3.5-5.1); UREA NITROGEN, BLOOD 12 mg/dL (7-18)
[2021-07-07 03:38] LABS: ALANINE AMINOTRANSFERASE 20 U/L (12-78); ALBUMIN 4.4 g/dL (3.4-5.0); ALKALINE PHOSPHATASE 90 U/L (46-116); ASPARTATE AMINOTRANSFERASE 15 U/L (15-37); BILIRUBIN,TOTAL 0.4 mg/dL (0.1-1.0); CARBAMAZEPINE (TEGRETOL) 3.7 mcg/mL (4.0-12.0); CREATINE KINASE, TOTAL ONLY 149 U/L (39-308); PHENYTOIN (DILANTIN) 2.7 mcg/mL (10.0-20.0); TOTAL PROTEIN, SERUM 8.3 g/dL (6.4-8.2)
[2021-07-07 05:08] LABS: SODIUM SERUM 138 mmol/L (136-145)
[2021-07-07 05:44] LABS: B-TYPE NATRIURETIC PEPTIDE 9 pg/mL (0-100)
[2021-07-07 06:16] VITALS: BP 123/69
== END 2021-07-07 06:18 | disposition home or self-care (01) ==
LOC: EMS 02:08
DX: R56.9 Unspecified convulsions (principal); R42 Dizziness and giddiness; Z20.822 Contact with and (suspected) exposure to COVID-19
CPT/HCPCS: 36415; 70450; 71045; 80053; 80156; 80185; 82550; 83880; 84484; 85025; 87426; 93005; 96361; 96374; 99285; G0482; J0712; J7030; J7060